=== PATIENT | male | born 1950 | race Hispanic/Latino ===

== ENCOUNTER → 2018-09-03 | Outpatient (CLI) | payer MEDICARE | END | disposition home or self-care (01) | LOC: OIH 08:46 | PROVIDERS: ATTEND Family Medicine | DX: M19.012 Primary osteoarthritis, left shoulder (principal); M19.011 Primary osteoarthritis, right shoulder | CPT/HCPCS: 73030 ==

== ENCOUNTER → 2019-05-22 | Outpatient (CLI) | payer OTHER | END | disposition home or self-care (01) | LOC: RAH 10:16 | PROVIDERS: ATTEND Internal Medicine Cardiovascular Disease | DX: Z13.6 Encounter for screening for cardiovascular disorders (principal) | CPT/HCPCS: 75571 ==

== ENCOUNTER → 2025-01-08 | Outpatient (CLI) | payer MEDICARE ==
--- NOTE | 2025-01-09 07:01 | HMCIMG ---
EXAM: CR Chest, 2 View. CLINICAL HISTORY: COUGH COMPARISON: chest x ray dated 02/09/2022. FINDINGS: LUNGS: The lungs show no infiltrate or other acute finding. PLEURAL SPACES: No evidence of pleural effusion or pneumothorax. MEDIASTINUM: The cardiomediastinal silhouette is within normal limits. BONES: No acute osseous abnormality. IMPRESSION: No acute cardiopulmonary pathology is evident. No interval changes as compared to chest x-ray dated 02/09/2022. /[place]
== END | disposition home or self-care (01) ==
LOC: RAH 14:29
PROVIDERS: ATTEND Family Medicine
DX: R05.9 Cough, unspecified (principal)
CPT/HCPCS: 71046

== ENCOUNTER → 2025-02-04 | Outpatient (CLI) | payer MEDICARE ==
[~2025-02-04] MED LIST: IOHEXOL-350 75 ML VIAL IV ONE
--- NOTE | 2025-02-04 17:52 | HMCIMG ---
EXAM: CT Chest Without Intravenous Contrast. CLINICAL HISTORY: 75 year old male with chronic obstructive pulmonary disease. TECHNIQUE: Axial computed tomography images of the chest without intravenous contrast. Dose reduction technique was used including one or more of the following: automated exposure control, adjustment of mA and kV according to patient size, and/or iterative reconstruction. CONTRAST: NONE COMPARISON: Compared to the prior XR chest from 01/08/2025 at 3:01 PM. FINDINGS: LUNGS: No pulmonary mass. No focal airspace consolidation. No significant emphysematous changes. No pulmonary embolism. PLEURAL SPACES: No pleural effusion. No pneumothorax. HEART AND MEDIASTINUM: No cardiomegaly. No significant pericardial effusion. LYMPH NODES: No lymphadenopathy. CHEST WALL AND UPPER ABDOMEN: The upper abdominal solid organs are unremarkable. The chest wall is unremarkable. BONES: No acute osseous abnormality. IMPRESSION: 1. No evidence of pulmonary embolism. 2. No significant emphysematous changes. 3. Findings are better appreciated compared to the prior XR chest from 01/08/2025 at 3:01 PM. /[place]
== END | disposition home or self-care (01) ==
LOC: RAH 11:07
PROVIDERS: ATTEND Family Medicine
DX: J44.9 Chronic obstructive pulmonary disease, unspecified (principal); R05.9 Cough, unspecified
CPT/HCPCS: 71270; Q9967